=== PATIENT | female | born 1970 | race Caucasian/White ===

== ENCOUNTER 2018-05-15 14:46 | Emergency (ER) | payer OTHER ==
[2018-05-15 15:01] VITALS: RESP 18
--- NOTE | 2018-05-15 16:00 | ED ---
General Adult HPI - General Chief complaint: Fall Stated complaint: fall with facial injury Source: patient Mode of arrival: ambulatory Limitations: no limitations - History of Present Illness Initial comments: Dictation was produced using [employer] dictation software. please excuse any grammatical, word or spelling errors. Chief Complaint: 47-year-old female presents with facial pain after fall. History of Present Illness: Patient is a 47-year-old femalepast medical history presents with facial pain. Proximal to 1 hour ago she was walking up the stairs patient she tripped hitting her face on one of the steps. Patient denies any loss of consciousness. Denies any bleeding. Patient denies any double vision. No other complaints at this time. The ROS documented in this emergency department record has been reviewed and confirmed by me. Those systems with pertinent positive or negative responses have been documented in the HPI. All other systems are other negative and/or noncontributory. - Related Data Allergies Allergy/AdvReac Type Severity Reaction Status Date / Time No Known Allergies Allergy Verified 05/15/18 14:57 Review of Systems ROS Statement: Those systems with pertinent positive or pertinent negative responses have been documented in the HPI. ROS Other: All systems not noted in ROS Statement are negative. Past Medical History Past Medical History: Cancer, GERD/Reflux Additional Past Medical History / Comment(s): collapsed lung 07/02, thyroid CA, History of Any Multi-Drug Resistant Organisms: None Reported Additional Past Surgical History / Comment(s): thyroidectomy, L breast bx, carpal tunnel Past Psychological History: Anxiety Smoking Status: Never smoker Past Alcohol Use History: None Reported Past Drug Use History: None Reported General Exam - General Exam Comments Initial Comments: PHYSICAL EXAM: General Impression: Alert and oriented x3, not in acute distress HEENT: Normocephalic atraumatic, mild tenderness to palpation over the right maxilla, extra-ocular movements intact, pupils equal and reactive to light bilaterally, mucous membranes moist. Cardiovascular: Heart regular rate and rhythm, S1&S2 audible, no murmurs, rubs or gallops Chest: Lungs clear to auscultation bilaterally, no rhonchi, no wheeze, no rales Abdomen: Bowel sounds present, abdomen soft, non-tender, non-distended, no organomegaly Musculoskeletal: Pulses present and equal in all extremities, no peripheral edema Motor: Power 5/5 bilaterally, no focal deficits noted Neurological: CN II-XII grossly intact, no focal motor or sensory deficits noted Skin: Intact with no visualized rashes Psych: Normal affect and mood Limitations: no limitations Course Vital Signs 05/15/18 14:57 Temperature 97.7 F Pulse Rate 122 H Respiratory 18 Rate Blood Pressure 169/113 O2 Sat by Pulse 98 Oximetry Medical Decision Making - Medical Decision Making ED course: 47-year-old female with facial pain status post fall. Signs upon arrival shows heart rate of 122, rest of vital signs within acceptable limits. Computed tomography scan of the face is unremarkable. Patient be discharged. Disposition Clinical Impression: Facial contusion Disposition: HOME SELF-CARE Instructions: Facial Contusion (ED) Is patient prescribed a controlled substance at d/c from ED?: No Referrals: Edmond Devine DO [Primary Care Provider] - 1-2 days Time of Disposition: 16:55
[2018-05-15] MEDS ORDERED: ACETAMINOPHEN TAB 325 MG TAB PO STA (16:25)
--- NOTE | 2018-05-15 16:43 | CT ---
EXAMINATION TYPE: CT facial bones wo con DATE OF EXAM: 05/15/2018 COMPARISON: NONE HISTORY: Fall today, frontal injury. CT DLP: 438.8 mGycm. Automated Exposure Control for Dose Reduction was Utilized. TECHNIQUE: CT scan of the sinuses is performed without contrast, axial images are obtained, coronal r eformatted images are also reviewed. FINDINGS: No evidence of a facial bone fracture. No significant soft tissue swelling or radiopaque fo reign bodies. The globes are unremarkable. Retrobulbar spaces are clear. Paranasal sinuses reveals pa tulous ostiomeatal units which are likely postsurgical. The mandible is intact. The temporomandibular joints are unremarkable. Mastoid air cells are well pneumatized bilaterally. Visualized portions of the upper most cervical spine are unremarkable. IMPRESSION: No evidence of acute facial bone fracture. Essentially unremarkable study.
[2018-05-15 17:14] VITALS: BP 148/108; PULSE 96; TEMP 98.2
== END 2018-05-15 17:13 | disposition home or self-care (01) ==
LOC: EC 14:46
DX: S00.83XA Contusion of other part of head, initial encounter (principal); Z85.850 Personal history of malignant neoplasm of thyroid; W10.9XXA Fall (on) (from) unspecified stairs and steps, initial encounter; Y93.01 Activity, walking, marching and hiking; Y92.009 Unspecified place in unspecified non-institutional (private) residence as the place of occurrence of the external cause
CPT/HCPCS: 70486; 99283

== ENCOUNTER → 2018-07-19 | Outpatient (CLI) | payer SELFPAY | LOC: LABWHC1 12:57 | PROVIDERS: ATTEND Family Medicine | DX: E03.9 Hypothyroidism, unspecified (principal) | CPT/HCPCS: 36415; 84439; 84443 ==

== ENCOUNTER → 2018-10-07 | Outpatient (CLI) | payer OTHER | END | disposition home or self-care (01) | LOC: LABWHC1 11:26 | PROVIDERS: ATTEND Family Medicine | DX: E03.9 Hypothyroidism, unspecified (principal) | CPT/HCPCS: 36415; 84439; 84443 ==

== ENCOUNTER 2018-11-10 20:35 | Emergency (ER) | payer OTHER ==
[2018-11-10 20:50] VITALS: RESP 18
--- NOTE | 2018-11-10 21:36 | XR ---
PROCEDURE: XR hand complete RT - 3V DATE AND TIME: 11/10/2018 9:05 PM CLINICAL INDICATION: PHH; Pain TECHNIQUE: Department protocol COMPARISON: None FINDINGS: There is no fracture or malalignment. There is evidence of remote healed fifth metacarpal neck fracture, but no acute finding. Soft tissue swelling is noted. IMPRESSION: Soft tissue swelling.
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
[2018-11-10 23:45] VITALS: BP 143/99; PULSE 93; TEMP 97.6
== END 2018-11-10 23:44 | disposition home or self-care (01) ==
LOC: EC 20:35
DX: S60.221A Contusion of right hand, initial encounter (principal); Z85.850 Personal history of malignant neoplasm of thyroid; Z86.11 Personal history of tuberculosis; Z98.890 Other specified postprocedural states; Z90.89 Acquired absence of other organs; W22.01XA Walked into wall, initial encounter
CPT/HCPCS: 99284

== ENCOUNTER 2018-11-26 21:53 | Emergency (ER) | payer OTHER ==
[2018-11-26 22:01] VITALS: TEMP 98
--- NOTE | 2018-11-26 22:12 | ED ---
Overdose HPI - General Chief Complaint: Overdose Stated Complaint: Overdose Time Seen by Provider: 11/26/18 21:58 Source: patient, RN notes reviewed, old records reviewed Mode of arrival: ambulatory Limitations: no limitations - History of Present Illness Initial Comments: This is a 47-year-old female the ER for evaluation. Patient resents today for evaluation regards to overdose. Patient is positive heroin overdose. Patient denies other drugs or alcohol. Patient states she is not homicidal or suicidal. Patient denies prior history of MD Complaint: accidental overdose -: minutes(s) Intent: unknown How Overdose Was Discovered: family/friend present at time Context: Intentional Overdose: drug/ETOH problems Context: Accidental Overdose: wanted to get high Treatments Prior to Arrival: none - Related Data Allergies Allergy/AdvReac Type Severity Reaction Status Date / Time No Known Allergies Allergy Verified 11/26/18 22:04 Review of Systems ROS Statement: Those systems with pertinent positive or pertinent negative responses have been documented in the HPI. ROS Other: All systems not noted in ROS Statement are negative. Past Medical History Past Medical History: Cancer, GERD/Reflux Additional Past Medical History / Comment(s): collapsed lung 07/02, thyroid CA, ( TB at age 4, always test pos), History of Any Multi-Drug Resistant Organisms: None Reported Past Surgical History: Hysterectomy Additional Past Surgical History / Comment(s): thyroidectomy, L breast bx, carpal tunnel Past Psychological History: Anxiety Smoking Status: Current every day smoker Past Alcohol Use History: None Reported Past Drug Use History: Heroin General Exam Limitations: no limitations General appearance: alert, in no apparent distress Head exam: Present: atraumatic, normocephalic, normal inspection Eye exam: Present: normal appearance, PERRL, EOMI. Absent: scleral icterus, conjunctival injection, periorbital swelling ENT exam: Present: normal exam, mucous membranes moist Neck exam: Present: normal inspection. Absent: tenderness, meningismus, lympha denopathy Respiratory exam: Present: normal lung sounds bilaterally. Absent: respiratory distress, wheezes, rales, rhonchi, stridor Cardiovascular Exam: Present: regular rate, normal rhythm, normal heart sounds. Absent: systolic murmur, diastolic murmur, rubs, gallop, clicks GI/Abdominal exam: Present: soft, normal bowel sounds. Absent: distended, tenderness, guarding, rebound, rigid Extremities exam: Present: normal inspection, full ROM, normal capillary refill. Absent: tenderness, pedal edema, joint swelling, calf tenderness Back exam: Present: normal inspection Neurological exam: Present: alert, oriented X3, CN II-XII intact Psychiatric exam: Present: normal affect, normal mood Skin exam: Present: warm, dry, intact, normal color. Absent: rash Course Vital Signs 11/26/18 11/26/18 21:56 22:19 Temperature 98.0 F Pulse Rate 110 H 103 H Respiratory 16 17 Rate Blood Pressure 149/107 154/96 O2 Sat by Pulse 95 96 Oximetry - Reevaluation(s) Reevaluation #1: 11/26/18 22:35 Medical record reviewed Reevaluation #2: 11/26/18 22:35 Patient given counseling regarding risk of within the next few with heroin overdose requiring Narcan. Questions answered. Patient admits to feeling depressed but not homicidal or suicidal Medical Decision Making - Medical Decision Making [place] female the ER status post overdose breath, EMS, family at bedside able to take patient home. Disposition Clinical Impression: Drug overdose, Poisoning by opiate or related narcotic Disposition: HOME SELF-CARE Condition: Good Instructions (If sedation given, give patient instructions): Opioid Use Disorder (ED) Is patient prescribed a controlled substance at d/c from ED?: No Referrals: Edmond Devine DO [Primary Care Provider] - 1-2 days
[2018-11-26 22:19] VITALS: PULSE 103
[2018-11-26 22:48] VITALS: BP 131/89; RESP 18
== END 2018-11-26 22:48 | disposition home or self-care (01) ==
LOC: EC 21:53
DX: T40.1X1A Poisoning by heroin, accidental (unintentional), initial encounter (principal); F17.200 Nicotine dependence, unspecified, uncomplicated; Z85.850 Personal history of malignant neoplasm of thyroid; E89.0 Postprocedural hypothyroidism
CPT/HCPCS: 99284

== ENCOUNTER → 2019-02-11 | Outpatient (CLI) | payer OTHER ==
[2019-02-11 14:31] VITALS: BP 130/87; PULSE 99; RESP 18; TEMP 98.2; BMI 29.0
--- NOTE | 2019-02-11 14:50 | P.GSHP ---
History of Present Illness H&P Date: 02/11/19 Chief Complaint: abnormal mammogram on the left breast The patient is a 48-year-old white female who comes for breast evaluation. Approximately year ago she had a mammogram and ultrasound performed of the breast in [place] and received a notification that she should have additional studies done of the left breast. The patient herself does not feel any masses or nodules in her breast. She has not had any recent radiographic evaluations at this time. No history of any trauma or infection of the breast. She did have a left breast biopsy many years ago which was benign. Family history: maternal aunt: breast cancer paternal grandfather: lung cancer father: skin cancer patient: thyroid cancer Hormonal history: Menarche:15 G0 hysterectomy: left ovaries, done for adenomyosis BCP: 20 years hormones: none Surgical history: 1. Total thyroidectomy 2. Hysterectomy 3. lung surgery it had collapsed 4. right knee laproscopic Medical History: Emphysema Social History: smoke: 1/PPD alcohol: none drugs: none - Constitutional Comment: hot flashes Constitutional: Reports sweats - EENT Comment: glaucoma in left eye Eyes: denies blurred vision, denies pain Ears: deny: decreased hearing, tinnitus Ears, nose, mouth and throat: Denies headache, Denies sore throat - Breasts Breasts: bilateral: as per HPI - Cardiovascular Cardiovascular: Reports high blood pressure, Denies chest pain, Denies shortness of breath - Respiratory Comment: lung collapse, pneumonia, emphysema Respiratory: Denies cough, Denies 7 - Gastrointestinal Gastrointestinal: Denies abdominal pain, Denies diarrhea, Denies nausea, Denies vomiting - Genitourinary (Female) Genitourinary: Denies dysuria, Denies hematuria - Menstruation Menstruation: Reports post hysterectomy - Musculoskeletal Comment: knee and lower back pain Musculoskeletal: Denies myalgias - Integumentary Comment: tattoos - Neurological Neurological: Denies numbness, Denies weakness - Psychiatric Psychiatric: Reports anxiety, Reports depression - Endocrine Endocrine: Denies fatigue, Denies weight change - Hematologic/Lymphatic Comment: none - Allergic/Immunologic Allergic/Immunologic: Reports seasonal allergies Past Medical History Past Medical History: Cancer, GERD/Reflux Additional Past Medical History / Comment(s): collapsed lung 07/02, thyroid CA, ( TB at age 4, always test pos), History of Any Multi-Drug Resistant Organisms: None Reported Past Surgical History: Hysterectomy Additional Past Surgical History / Comment(s): thyroidectomy, L breast bx, carpal tunnel Past Psychological History: Anxiety Smoking Status: Current every day smoker Past Alcohol Use History: None Reported Past Drug Use History: Heroin Medications and Allergies Home Medications Medication Instructions Recorded Confirmed Type Levothyroxine Sodium [Synthroid] 200 mcg PO DAILY 11/26/18 11/26/18 History Omeprazole 40 mg PO DAILY 11/26/18 11/26/18 History Sertraline [Zoloft] 200 mg PO HS 11/26/18 11/26/18 History Acetaminophen [Tylenol] 500 mg PO Q4-6H PRN 02/11/19 02/11/19 History Allergies Allergy/AdvReac Type Severity Reaction Status Date / Time No Known Allergies Allergy Verified 02/11/19 14:28 Surgical - Exam Vital Signs Temp Pulse Resp BP Pulse Ox 98.2 F 99 18 130/87 93 L 02/11/19 14:28 02/11/19 14:28 02/11/19 14:28 02/11/19 14:28 02/11/19 14:28 BMI 29 - General well developed, well nourished, no distress - Eyes normal ocular movement - ENT no hearing loss, no congestion - Neck no masses, trachea midline - Respiratory normal respiratory effort, clear to auscultation - Cardiovascular Rhythm: regular Heart Sounds: normal: S1, S2 - Abdomen Abdomen: soft, non tender, no guarding, no rigid, no rebound - Integumentary tattoos - Neurologic no disoriented, no combative - Musculoskeletal normal gait, normal posture - Psychiatric oriented to time, oriented to person, oriented to place, speech is normal, memory intact breast: Right breast: Multi-positional exam fibrocystic changes no dominant masses or nodules of concern Right axilla: No adenopathy of concern Left breast: Multi-positional exam fibrocystic changes no dominant masses or nodules of concern well-healed scar from prior biopsy Left axilla: No adenopathy of concern Assessment and Plan Assessment: Impression: 1. Abnormal radiograph from [place] who reports are not available at this time 2. Fibrocystic breast changes 3. Prior left breast biopsy with postop changes 4. Family history of breast cancer 5. Family history cancer 6. Nicotine dependence 7. Emphysema Plan: 1. Bilateral mammogram and left breast ultrasound 2. Follow-up after radiographs 3. Increase patient to stop smoking 4. Medical management of medical conditions CC: Dr. Drake
== END | disposition home or self-care (01) ==
LOC: WWCWWP 13:51
PROVIDERS: ATTEND Surgery
DX: Z53.9 Procedure and treatment not carried out, unspecified reason (principal)

== ENCOUNTER → 2019-04-01 | Outpatient (CLI) | payer OTHER ==
--- NOTE | 2019-04-01 14:19 | XR ---
EXAMINATION TYPE: XR spine complete AP and Lat DATE OF EXAM: 04/01/2019 COMPARISON: NONE HISTORY: Neck and back pain. TECHNIQUE: Frontal and lateral views of the entire spine including open mouth frontal view C1-C2 leve l and swimmer's view of the cervicothoracic junction are obtained. FINDINGS: There is mild disc space narrowing C4-C5 level. There is mild disc space narrowing and ante rior spurring C5-C6 level. Suboptimal evaluation of lower cervical levels due to osseous overlap. C1- C2 articulation satisfactory open mouth frontal view. Cervical alignment maintained. No suspicious pr evertebral soft tissue swelling. Thoracic spine shows satisfactory alignment with mild to moderate multilevel anterior spurring. Verte bral body heights and disc space heights are preserved. Visualized ribs are intact bilaterally. There are 5 lumbar type vertebra. Mild to moderate disc space narrowing L4-L5 at L5-S1 levels. [place] ing vascular calcification. Alignment satisfactory. IMPRESSION: As above.
== END | disposition home or self-care (01) ==
LOC: RADXRMAIN 13:54
PROVIDERS: ATTEND Family Medicine
DX: M99.71 Connective tissue and disc stenosis of intervertebral foramina of cervical region (principal); M99.73 Connective tissue and disc stenosis of intervertebral foramina of lumbar region; M46.04 Spinal enthesopathy, thoracic region
CPT/HCPCS: 72082

== ENCOUNTER 2019-06-18 09:04 | Emergency (ER) | payer OTHER ==
[2019-06-18 09:24] VITALS: TEMP 97.6
[2019-06-18] MEDS ORDERED: AMOXIC-POT CLAV 875MG STARTER 2 EACH TABLET PO STA (10:09)
--- NOTE | 2019-06-18 10:10 | ED ---
Skin/Abscess/FB HPI - General Source: patient, RN notes reviewed, old records reviewed Mode of arrival: ambulatory Limitations: no limitations <Mirian Sharma - Last Filed: 06/18/19 10:04> <Hoda Browne - Last Filed: 06/19/19 21:46> - General Chief complaint: Skin/Abscess/Foreign Body Stated complaint: Lump on face Time Seen by Provider: 06/18/19 09:29 - History of Present Illness Initial comments: This Patient is a 48-year-old female who presents branch from today with a lump on her left cheek. She reports that she started noticed this around Christmastime increase in size. She states over the past week she took old azithromycin tablets that she had prior. She states that she did have a crown placed over her tooth #12. Patient states that this occurred a few months ago. Patient states that she's had no specific dental pain. Patient reports that she has had no fevers or chills. She denies any difficulty breathing. (Mirian Sharma) - Related Data Home Medications Medication Instructions Recorded Confirmed Levothyroxine Sodium [Synthroid] 200 mcg PO DAILY 11/26/18 11/26/18 Omeprazole 40 mg PO DAILY 11/26/18 11/26/18 Sertraline [Zoloft] 200 mg PO HS 11/26/18 11/26/18 Acetaminophen [Tylenol] 500 mg PO Q4-6H PRN 02/11/19 02/11/19 Previous Rx's Medication Instructions Recorded Amoxic-Pot Clav 875-125Mg 1 tab PO Q12HR #20 tablet 06/18/19 [Augmentin 875-125] Allergies Allergy/AdvReac Type Severity Reaction Status Date / Time No Known Allergies Allergy Verified 06/18/19 09:24 Review of Systems ROS Other: All systems not noted in ROS Statement are negative. <Mirian Sharma - Last Filed: 06/18/19 10:04> ROS Other: All systems not noted in ROS Statement are negative. <Hoda Browne - Last Filed: 06/19/19 21:46> ROS Statement: Those systems with pertinent positive or pertinent negative responses have been documented in the HPI. Past Medical History Past Medical History: Cancer, GERD/Reflux Additional Past Medical History / Comment(s): collapsed lung 07/02, thyroid CA, ( TB at age 4, always test pos), History of Any Multi-Drug Resistant Organisms: None Reported Past Surgical History: Hysterectomy Additional Past Surgical History / Comment(s): thyroidectomy, L breast bx, carpal tunnel Past Psychological History: Anxiety Smoking Status: Current every day smoker Past Alcohol Use History: None Reported Past Drug Use History: Heroin <Mirian Sharma - Last Filed: 06/18/19 10:04> General Exam Limitations: no limitations General appearance: alert, in no apparent distress Head exam: Present: atraumatic, normocephalic, normal inspection Eye exam: Present: normal appearance ENT exam: Present: normal exam, mucous membranes moist, other (left maxillary tenderness, ) Neck exam: Present: normal inspection. Absent: tenderness, meningismus, lymphadenopathy Respiratory exam: Present: normal lung sounds bilaterally Cardiovascular Exam: Present: regular rate, normal rhythm, normal heart sounds. Absent: systolic murmur, diastolic murmur, rubs, gallop, clicks GI/Abdominal exam: Present: soft, normal bowel sounds. Absent: distended, tenderness, guarding, rebound, rigid Extremities exam: Present: normal inspection Back exam: Present: normal inspection Neurological exam: Present: alert, oriented X3, CN II-XII intact Psychiatric exam: Present: normal affect, normal mood Skin exam: Present: warm, dry, intact, normal color. Absent: rash <Mirian Sharma - Last Filed: 06/18/19 10:04> - General Exam Comments Initial Comments: 48 year old female no distress. (Mirian Sharma) Course Vital Signs 06/18/19 06/18/19 06/18/19 09:21 09:23 10:23 Temperature 97.6 F Pulse Rate 81 78 Respiratory 18 20 20 Rate Blood Pressure 175/110 175/100 O2 Sat by Pulse 98 Oximetry Medical Decision Making <Mirian Sharma - Last Filed: 06/18/19 10:04> <Hoda Browne - Last Filed: 06/19/19 21:46> - Medical Decision Making is a 48-year-old female presents today with dental abscess related from tooth #12. She has some swelling extending into the left maxillary area. No fever. No stranding erythema. Patient was taking azithromycin from an old prescription. Discussed not appropriate antibiotic. We'll put the Patient on Augmentin at this time. I discussed the Patient needs to follow-up with her dental clinic. No drainable portion of the abscess at this time. I discussed return parameters. (Mirian Sharma) I was available for consultation in the emergency department. The history and physical exam were done by the midlevel provider. I was consulted for this patients care. I reviewed the case with the midlevel provider and based on their presentation of the patient, I agree with the assessment, medical decision making and plan of care as documented. Chart was dictated using VeriTainer dictation software. Attempts were made to correct any dictation errors however some typographical errors may persist. (Hoda Browne) Disposition Is patient prescribed a controlled substance at d/c from ED?: No If opioid is for acute pain is fill amount 7 days or less?: No If Rx opioid, was Start Talking consent form obtained?: No Time of Disposition: 10:09 <Mirian hSarma - Last Filed: 06/18/19 10:04> <Hoda Browne - Last Filed: 06/19/19 21:46> Clinical Impression: Abscess, dental Disposition: HOME SELF-CARE Condition: Good Instructions (If sedation given, give patient instructions): Abscess (ED) Additional Instructions: Patient advised to take antibiotic as prescribed. Taking Motrin Tylenol for pain. Return to emergency department if any alarming signs or symptoms occur. [facility] [address] [place] [address] [phone] (existing clients only) For new clients: [phone] 1st consult: $50 (includes Xrays) Usually 30% less then private dentist for visits after. [employer] Have to pay $50 for Xrays anmd rest is covered. [phone] Prescriptions: Amoxic-Pot Clav 875-125Mg [Augmentin 875-125] 1 tab PO Q12HR #20 tablet Referrals: Edmond Devine DO [Primary Care Provider] - 1-2 days
[2019-06-18 10:26] VITALS: RESP 20
[2019-06-18 10:28] VITALS: BP 175/100; PULSE 78
== END 2019-06-18 10:30 | disposition home or self-care (01) ==
LOC: EC 09:04
DX: K04.7 Periapical abscess without sinus (principal); K21.9 Gastro-esophageal reflux disease without esophagitis; F41.9 Anxiety disorder, unspecified; F17.200 Nicotine dependence, unspecified, uncomplicated; Z85.850 Personal history of malignant neoplasm of thyroid; Z79.890 Hormone replacement therapy; Z79.899 Other long term (current) drug therapy
CPT/HCPCS: 99283

== ENCOUNTER → 2019-12-19 | Outpatient (CLI) | payer OTHER ==
--- NOTE | 2019-12-19 13:40 | MR ---
EXAMINATION TYPE: MR lumbar spine wo con DATE OF EXAM: 12/19/2019 1:09 PM COMPARISON: NONE HISTORY: Chronic LBP, muscle spasms, lt leg numbness Multiplanar, MultiSpin echo imaging of the lumbar spine was performed. L1-L2: Normal disc appearance without desiccation. No herniation, protrusion or disc bulging. No ca nal stenosis is present. Foramina are patent bilaterally. L2-L3: Normal disc appearance without desiccation. No herniation, protrusion or disc bulging. No ca nal stenosis is present. Foramina are patent bilaterally. L3-L4: Mild decreased signal ossified compatible degenerative disc disease. Posterior disc bulge with mild effacement ventral thecal sac. No evidence of herniation. No central stenosis or foraminal encr oachment. L4-L5: Mild decreased signal ossified compatible degenerative disc disease. Posterior disc bulge with mild effacement ventral thecal sac. No evidence of herniation. No central stenosis or foraminal encr oachment. L5-S1: Moderate disc desiccation with posterior disc bulge. Small protrusion difficult to exclude. No evidence for lateral recess stenosis or central stenosis. The mild left foraminal Lumbar segments are intact. No paraspinal masses are identified. Conus medullaris has a normal appe arance. IMPRESSION: 1. Degenerative disc disease as discussed. Small protrusion at L5-S1 difficult to excluded.
== END | disposition home or self-care (01) ==
LOC: RADMRIMAIN 12:21
PROVIDERS: ATTEND Physical Medicine & Rehabilitation
DX: M51.16 Intervertebral disc disorders with radiculopathy, lumbar region (principal); Z85.850 Personal history of malignant neoplasm of thyroid
CPT/HCPCS: 72148

== ENCOUNTER 2021-11-13 09:12 | Day surgery (SDC) | payer OTHER ==
[2021-11-08 17:10] VITALS: BMI 30.5
--- NOTE | 2021-11-12 08:59 | P.HPOR ---
History of Present Illness H&P Date: 11/12/21 Chief Complaint: Right thumb CMC arthritis Subjective: This is a 50 year old female that presents today for initial evaluation regarding a several year history of progressively worsening bilateral base of the thumb pain. She states the right side is worse than the left side and that by the end of each day and each morning her thumbs throb and she is unable to pinch, grasp, or open any type of jar due to pain and weakness and swelling. She denies any injury. She has tried splints and orthotics over the years but has noticed no relief from her symptoms in the last year or so. She denies any paresthesias. 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 Physical Examination: LUE: AIN/PIN/Radial/Ulnar/Median motor intact. Radial/Ulnar/Median SILT. 2+/4 Radial/Ulnar pulses palpated. 5/5 APB, 5/5 FDI. Negative Finkelsteins, positive CMC grind, negative Durkan's compression. RUE: AIN/PIN/Radial/Ulnar/Median motor intact. Radial/Ulnar/Median SILT. 2+/4 Radial/Ulnar pulses palpated. 5/5 APB, 5/5 FDI. Negative Finkelsteins, positive CMC grind, negative Durkan's compression. Imaging: X-Rays of the right hand demonstrate advanced degenerative changes at the thumb CMC joint with joint space narrowing and osteophyte formation. X-Rays of the left hand demonstrate advanced degenerative changes at the thumb CMC joint with joint space narrowing and osteophyte formation. Impression: 1.) B/L Thumb CMC arthritis, right worse than left. Plan: Diagnosis and treatment options were discussed with the patient. She has failed conservative treatment for her bilateral thumb CMC arthritis and is having continued pain that is becoming a daily occurrence with pain and weakness that is effecting her daily activities. We discussed details of thumb CMC tendon transfer arthroplasty and she wishes to proceed with surgical intervention since conservative treatment is no long providing relief. Risks and benefit of surgery including bleeding, infection, damage to surrounding tissue, need for further surgery, residual numbness were discussed and the patient wished to go forward with surgery on the right side. PCP clearance in requested and she will be scheduled for outpatient surgery in the near future. -Robles Edwards DO Orthopedic Hand/Upper Extremity Surgeon Past Medical History Past Medical History: Cancer, Diabetes Mellitus, GERD/Reflux, Hypertension, Musculoskeletal Disorder, Osteoarthritis (OA), Respiratory Disorder, Thyroid Disorder Additional Past Medical History / Comment(s): Hx tachycardia in her 20's; emphysema; collapsed lung 07/02, thyroid CA, ( TB at age 4, always test pos), Hx po Rx for HTN & DM, none since wgt loss 2010 est. Rt thumb arthritis, herniated discs in lower back. History of Any Multi-Drug Resistant Organisms: None Reported Past Surgical History: Breast Surgery, Hysterectomy, Orthopedic Surgery Additional Past Surgical History / Comment(s): thyroidectomy, L breast bx, carpal tunnel bilat Past Anesthesia/Blood Transfusion Reactions: No Reported Reaction Smoking Status: Current every day smoker, Vaper - Past Family History Father Family Medical History: Cancer Additional Family Medical History / Comment(s): skin cancer Medications and Allergies Home Medications Medication Instructions Recorded Confirmed Type Levothyroxine Sodium [Synthroid] 300 mcg PO DAILY 11/26/18 11/08/21 History Omeprazole 40 mg PO DAILY 11/26/18 11/08/21 History Sertraline [Zoloft] 200 mg PO HS 11/26/18 11/08/21 History Acetaminophen [Tylenol] 325 - 650 mg PO Q4H PRN 11/08/21 11/08/21 History Cyclobenzaprine [Flexeril] 10 mg PO HS PRN 11/08/21 11/08/21 History Ibuprofen [Motrin Ib] 400 mg PO Q8H PRN 11/08/21 11/08/21 History traZODone HCL [Desyrel] 100 mg PO HS 11/08/21 11/08/21 History Allergies Allergy/AdvReac Type Severity Reaction Status Date / Time No Known Allergies Allergy Verified 11/08/21 16:46 Physical Examination Osteopathic Statement: *. No significant issues noted on an osteopathic structural exam other than those noted in the History and Physical/Consult.
[~2021-11-13 09:12] MED LIST: LACTATED RINGERS 1,000 ML IV SCH; LIDOCAINE 1% (10MG/ML) FOR IV START INTRADERMA PRN; ONDANSETRON 4 MG/2 ML VIAL IVP ONE
[2021-11-13] MEDS ORDERED: LACTATED RINGERS 1,000 ML IV ONE (09:40)
[2021-11-13 09:52] LABS: Glucose,Whole Blood 98 mg/dL (75-99)
[2021-11-13] MEDS ORDERED: MIDAZOLAM 2 MG/2 ML VIAL ONE (11:58)
[2021-11-13] MEDS ORDERED: HYDROmorphone (PF) 1 MG/ML ONE (11:58)
[2021-11-13] MEDS ORDERED: PROPOFOL 10 MG/ML 20 ML VIAL IV ONE (11:58)
[2021-11-13] MEDS ORDERED: fentaNYL (PF) 50 MCG/ML 2 ML AMP ONE (11:58)
[2021-11-13] MEDS ORDERED: LIDOCAINE 2% INJ 20 MG/ML (2 ML VIAL) ONE (11:58)
[2021-11-13] MEDS ORDERED: BUPIVACAINE (PF) 0.5% 30 ML VIAL SQ ONE ×2 (12:03→13:13)
[2021-11-13 13:24] VITALS: TEMP 97.4
[2021-11-13] MEDS: HYDROmorphone 0.5 MG/0.5 ML SYRINGE IVP PRN ×3 (13:27→14:02)
[2021-11-13 13:52] VITALS: RESP 16
[2021-11-13 14:35] VITALS: BP 121/76; PULSE 80
--- NOTE | 2021-11-14 07:05 | P.OP ---
Date of Procedure: 11/14/21 Preoperative Diagnosis: 1.) Right thumb CMC arthritis Postoperative Diagnosis: 1.) Right thumb CMC arthritis Procedure(s) Performed: 1.) Right thumb CMC tendon transfer arthroplasty with trapezium resection Implants: Arthrex 3.5mm SwiveLock anchor x2 Anesthesia: JAMES regional Surgeon: Robles Edwards Loader #1: Rk Villafuerte Estimated Blood Loss (ml): 10 Pathology: none sent Condition: stable Disposition: PACU Description of Procedure: This is a 50 year old female who presents today for a right thumb CMC tendon transfer arthroplasty after having failed conservative treatment for severe thumb CMC arthritis. Risks and benefits of surgery were discussed with the patient including bleeding, damage to surrounding tissue, infection, need for further surgery as well as risks of anesthesia including pulmonary embolism and even and the patient wished to proceed with surgical intervention. The patients was seen in the pre-operative area by myself. Consent and H&P were completed and updated. The correct extremity was marked in the pre-operative area by myself and all other questions were answered. Patient received a upper extremity nerve block by the department of anesthesia. He then was brought to the operating room by the department of anesthesia. They remained on the portable stretcher and a rolling hand table was brought to the side of the operative extremity. The patient was then drifted off to sleep by [facility] department of anesthesia. A nonsterile tourniquet was then applied to the operative extremity and the right upper extremity was then prepped and draped in normal sterile fashion. Pre-operative time out was performed indicating the correct patient, procedure and laterality. All in the room agreed. Pre-operative antibiotics were given prior to skin incision. The operative extremity was the exsanguinated with an esmarch bandage and the tourniquet was inflated to 250mmHg. Longitudinal incision was made over the left thumb CMC joint with a 15 blade scalpel. Blunt dissection was taken down to subcutaneous tissues with littler scissors taking care to preserve the branches of the superficial radial nerve. Dorsal radial artery was identified proximally in the incision and protected throughout the procedure. Scalpel was then made to incise the thumb CMC joint creating full thickness flaps off of the proximal metacarpal base and trapezium, this plane was further developed with a periosteal elevator. Elevator was then utilized to identify the thumb CMC joint and scaphotrapezial joint. McGlamory elevator was then used to excise the trapezium whole. Guidewire was then introduced down to the laser line at the base of the first metacarpal through the same incision and was over drilled with gold drill guide to prepare for APL graft. Another guidewire was then inserted at the radial base of the first metacarpal near the Insertion of APL and was then over drilled with normal drill guide. A 2-3mm wide slip of APL was then harvested and incised proximally and reflected distally keeping its attachment at the base of the first metacarpal. The slip of APL was captured with a 3-0 looped fiberwire suture. A 3.5mm Arthrex SwiveLock anchor was then inserted into the base of the first metacarpal. Another 3.5mm Arthrex SwiveLock anchor was inserted into the base of the second metacarpal with the thumb in slight traction and adduction while capturing the APL graft and two strands of fibertape center across the first metacarpal base to create a sling around the base suspending the thumb metacarpal, good otto purchase was appreciated. The thumb was successfully suspended and full ROM was achieved passively. Suture and graft ends were cut and skin was closed with several interrupted 4-0 Monocryl sutures followed by a running 4-0 Monocryl stitch. Sterile dressing consisting of mastisol and steri strips followed by 4x4s cast padding, and a thumb spica plaster splint was applied. Tourniquet was let down and the hand had brisk cap refill and normal perfusion immediately. The patient was then woken by the department of anesthesia and transferred to PACU in stable condition. Rk HERNANDEZ was present for the case and assisted in major portions of procedure and protection of vital neurovascular structures. Robles Edwards D.O. Orthopedic Hand/Upper Extremity Surgeon
== END 2021-11-13 15:05 | disposition home or self-care (01) ==
LOC: OR 09:12
PROVIDERS: ATTEND Orthopaedic Surgery Hand Surgery
DX: M18.11 Unilateral primary osteoarthritis of first carpometacarpal joint, right hand (principal); E11.9 Type 2 diabetes mellitus without complications; F17.200 Nicotine dependence, unspecified, uncomplicated; I10 Essential (primary) hypertension; J43.9 Emphysema, unspecified; K21.9 Gastro-esophageal reflux disease without esophagitis; Z79.1 Long term (current) use of non-steroidal anti-inflammatories (NSAID); Z85.850 Personal history of malignant neoplasm of thyroid
CPT/HCPCS: 25447; 25310; 26480; C1713; J2250; J0690; J2405; J3010; J1170 ×2; J2704; J2001

== ENCOUNTER → 2022-07-16 | Outpatient (CLI) | payer OTHER ==
[2022-07-16 22:52] LABS: INR 0.96 (0.90-1.11); Prothrombin Time 10.9 sec (9.9-11.9)
[2022-07-16 23:18] LABS: African American GFR (CKD) 102.4 (60.0-200.0); Albumin 4.3 g/dL (3.8-4.9); Albumin/Globulin Ratio 1.82 (1.60-3.17); Anion Gap 10.7 mmol/L (10.00-18.00); BUN/Creat Ratio 7.28 Ratio (12.00-20.00); Blood Urea Nitrogen 5.7 mg/dL (9.0-27.0); Carbon Dioxide 28.1 mmol/L (20.0-27.5); Globulin 2.3 g/dL (1.6-3.3); Non-African American GFR(CKD) 88.4 (60.0-200.0); Potassium 4.7 mmol/L (3.5-5.5); T4, Free (Free Thyroxine) 2.45 ng/dL (0.800-1.800); Total Bilirubin 0.6 mg/dL (0.30-1.20); Total Protein 6.6 g/dL (6.2-8.2)
[2022-07-18 23:06] LABS: Hepatitis A Antibody IgM Nonreactive (Nonreactive); Hepatitis B Core IgM Nonreactive (Nonreactive); Hepatitis B Surface Antigen Nonreactive (Nonreactive); Hepatitis C IgG Antibody Reactive (Nonreactive)
== END | disposition home or self-care (01) ==
LOC: LABWHC1 14:32
PROVIDERS: ATTEND Family Medicine
DX: E03.9 Hypothyroidism, unspecified (principal); G47.00 Insomnia, unspecified; G89.29 Other chronic pain; M54.9 Dorsalgia, unspecified; R79.89 Other specified abnormal findings of blood chemistry; R58 Hemorrhage, not elsewhere classified
CPT/HCPCS: 36415; 80053; 80074; 82977; 84439; 84443; 85610

== ENCOUNTER → 2022-09-10 | Outpatient (CLI) | payer OTHER ==
--- NOTE | 2022-09-10 15:17 | US ---
EXAMINATION TYPE: US liver DATE OF EXAM: 09/10/2022 COMPARISON: NONE CLINICAL HISTORY: B18.2 CHR VIRAL HEP C. TECHNIQUE: Multiple sonographic images of the right upper quadrant are obtained. FINDINGS: EXAM MEASUREMENTS: Liver Length: 18.8 cm. Normal less than 15.5 cm. Gallbladder Wall: 0.3 cm CBD: 1.5 cm. Normal less than 0.5 cm. 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 Dilated common bile duct at 1.5 cm. Normal should be less than 0.5 cm at this age. Consider ERCP 2. Hepatomegaly.
== END | disposition home or self-care (01) ==
LOC: RADUSWWP 13:22
PROVIDERS: ATTEND Internal Medicine Gastroenterology
DX: K83.8 Other specified diseases of biliary tract (principal); R16.0 Hepatomegaly, not elsewhere classified; B18.2 Chronic viral hepatitis C
CPT/HCPCS: 76705

== ENCOUNTER → 2022-10-06 | Outpatient (CLI) | payer OTHER ==
--- NOTE | 2022-10-06 18:42 | MR ---
EXAMINATION TYPE: MR MRCP DATE OF EXAM: 10/06/2022 COMPARISON: Ultrasound liver September 10, 2022 HISTORY: Abnormal findings on US 09-10-22. Standard multiplanar, multisequence MRI departmental protocol Multiplanar, multisequence images of the abdomen were acquired without contrast. Diffusion weighted i maging was performed. Thin and thick slice MRCP imaging performed on MRI scanner. FINDINGS: Exam is suboptimal as patient unable to hold breath. Liver/gallbladder/pancreas/biliary system: Hepatomegaly is redemonstrated. There is diffuse signal dr opout consistent with diffuse fatty infiltration which correlates with recent ultrasound. No intralum inal gallstones. No concerning solid or cystic intrahepatic mass. No adjacent ascites. Pancreas shows no solid or cystic mass. Correlating with CT there is moderate extra hepatic biliary dilatation up t o 16 mm and mild central intrahepatic biliary dilatation. Pancreatic duct is visualized but not suspi ciously dilated. There is gradual tapering of the CBD towards the ampulla without obstructing calculu s or obvious mass. Other: Lung bases are grossly clear. The spleen and both adrenal glands appear within normal limits. No concerning renal mass or hydronephrosis. No suspicious bowel dilatation. No intra-abdominal ascite s. Osseous structures are intact. IMPRESSION: Hepatomegaly with diffuse fatty infiltration of liver redemonstrated. Mild to moderate bi liary dilatation redemonstrated. No CBD stone. No obvious mass on noncontrast MRI. Consider ERCP foll ow-up to further evaluate.
== END | disposition home or self-care (01) ==
LOC: RADMRIMAIN 06:38
PROVIDERS: ATTEND Internal Medicine Gastroenterology
DX: K76.0 Fatty (change of) liver, not elsewhere classified (principal); K83.8 Other specified diseases of biliary tract; R16.0 Hepatomegaly, not elsewhere classified; R93.2 Abnormal findings on diagnostic imaging of liver and biliary tract
CPT/HCPCS: 74181

== ENCOUNTER → 2023-01-07 | Outpatient (CLI) | payer OTHER ==
[2023-01-07 22:19] LABS: Basophils # (A) 0.02 X 10*3/uL (0.00-0.10); Basophils % (A) 0.4 %; Eosinophils # (A) 0 X 10*3/uL (0.04-0.35); Eosinophils % (A) 0 %; HGB 14.8 d/dL (12.0-15.0); Lymphocytes # (A) 1.63 X 10*3/uL (0.90-5.00); Lymphocytes % (A) 28.5 %; MCH 32.1 pg (27.0-32.0); MCHC 33.6 d/dL (32.0-37.0); MCV 95.4 FL (80.0-97.0); Mean Platelet Volume 12.5 FL (9.5-12.2); Monocytes # (A) 0.55 X 10*3/uL (0.20-1.00); Monocytes % (A) 9.6 %; NRBC Per 100 WBC 0 X 10*3/uL (0.00-0.01); Neutrophils # (A) 3.49 X 10*3/uL (1.80-7.70); Neutrophils % (A) 61.1 %; Platelet Count 137 X 10*3/uL (140-440); RBC 4.61 X 10*6/uL (4.10-5.20); RDW 14.7 % (11.5-14.5); WBC 5.71 X 10*3/uL (4.50-10.00)
[2023-01-08 04:32] LABS: ALT 18 U/L (8-44); AST 27 U/L (13-35); Albumin 4.3 d/dL (3.8-4.9); Albumin/Globulin Ratio 1.87 Ratio (1.60-3.17); Alkaline Phosphatase 122 U/L (41-126); BUN/Creat Ratio 9.71 Ratio (12.00-20.00); Blood Urea Nitrogen 6.8 mg/dL (9.0-27.0); Calcium 8.9 mg/dL (8.7-10.3); Carbon Dioxide 24.4 mmol/L (21.6-31.8); Chloride 102 mmol/L (96-109); Globulin 2.3 d/dL (1.6-3.3); Glucose 138 mg/dL (70-110); Potassium 4.2 mmol/L (3.5-5.5); Sodium 139 mmol/L (135-145); Total Bilirubin 0.4 mg/dL (0.3-1.2); Total Protein 6.6 d/dL (6.2-8.2)
== END | disposition home or self-care (01) ==
LOC: LABWHC1 14:23
PROVIDERS: ATTEND Nurse Practitioner Family
DX: B18.2 Chronic viral hepatitis C (principal)
CPT/HCPCS: 36415; 80053; 85025; 87522

== ENCOUNTER 2023-04-07 07:19 | Day surgery (SDC) | payer OTHER ==
[~2023-04-07 07:19] MED LIST changes: -ONDANSETRON 4 MG/2 ML VIAL IVP ONE
[2023-04-07] MEDS ORDERED: LACTATED RINGERS 1,000 ML IV ONE (08:01)
[2023-04-07 08:17] VITALS: TEMP 98.2
[2023-04-07] MEDS ORDERED: fentaNYL (PF) 50 MCG/ML 2 ML AMP ONE (08:43)
[2023-04-07] MEDS ORDERED: PROPOFOL 10 MG/ML 20 ML VIAL IV ONE (08:43)
[2023-04-07] MEDS ORDERED: LIDOCAINE 1% INJ 10MG/ML (20 ML MDV) ONE (08:43)
--- NOTE | 2023-04-07 08:54 | P.PCN ---
Date of Procedure: 04/07/23 Procedure(s) Performed: BRIEF HISTORY: Patient is a 52-year-old, pleasant, white female with history of liver cirrhosis/chronic hepatitis C infection is scheduled for an upper endoscopy to screen for esophageal varices. PROCEDURE PERFORMED: Esophagogastroduodenoscopy. PREOPERATIVE DIAGNOSIS: History of liver cirrhosis/screening for esophageal varices. IV sedation per anesthesia. PROCEDURE: After informed consent was obtained, the patient was brought into the endoscopy unit. IV sedation was administered by Anesthesia under continuous monitoring. Initially the Olympus GIF-140 video endoscope was inserted into the mouth. Esophagus intubated without any difficulty. It was gradually advanced into the stomach and duodenum and carefully examined. The bulb and the second part of the duodenum appeared normal. The scope at this time was withdrawn to the stomach, adequately insufflated with air, and upon careful examination, mucosa of the antrum, had linear superficial erythema consistent with gastritis. Mucosa of the body, cardia and the fundus appeared normal. Moderate amount of retained solid food noted in the fundus of the stomach suggestive of gastroparesis. No gastric varices seen. The scope was then withdrawn into the esophagus. The GE junction was located at 39 cm from the incisors. The esophagus appeared normal. There were no erosions or ulcerations seen. No evidence of esophageal varices and the patient tolerated the procedure well. IMPRESSION: 1. No evidence of gastric or esophageal varices. 2. Mild antral gastritis 3. Small amount of retained solid food in the stomach suggestive of gastroparesis. RECOMMENDATIONS: The findings of this examination were discussed with the patient as well as a family. She was advised to have a repeat upper endoscopy in 2-3 years to screen for esophageal varices.
[2023-04-07 09:57] VITALS: BP 132/78; PULSE 70; RESP 20
== END 2023-04-07 09:40 | disposition home or self-care (01) ==
LOC: ORWHC2ENDO 07:19
PROVIDERS: ATTEND Internal Medicine Gastroenterology
DX: K29.70 Gastritis, unspecified, without bleeding (principal); K74.60 Unspecified cirrhosis of liver; B18.2 Chronic viral hepatitis C; I10 Essential (primary) hypertension; E11.9 Type 2 diabetes mellitus without complications; E03.9 Hypothyroidism, unspecified; K21.9 Gastro-esophageal reflux disease without esophagitis; M19.90 Unspecified osteoarthritis, unspecified site; F17.200 Nicotine dependence, unspecified, uncomplicated; Z79.890 Hormone replacement therapy; Z79.899 Other long term (current) drug therapy
CPT/HCPCS: 43235; J2001; J3010; J2704

== ENCOUNTER → 2023-08-03 | Outpatient (CLI) | payer OTHER ==
[2023-08-03 15:39] LABS: ALT 22 U/L (8-44); AST 38 U/L (13-35); Albumin 4.1 g/dL (3.8-4.9); Albumin/Globulin Ratio 1.86 Ratio (1.60-3.17); Alkaline Phosphatase 140 U/L (41-126); BUN/Creat Ratio 9.71 Ratio (12.00-20.00); Blood Urea Nitrogen 6.8 mg/dL (9.0-27.0); Calcium 9.1 mg/dL (8.7-10.3); Carbon Dioxide 24.9 mmol/L (21.6-31.8); Chloride 100 mmol/L (96-109); Globulin 2.2 g/dL (1.6-3.3); Glucose 122 mg/dL (70-110); Potassium 4.5 mmol/L (3.5-5.5); Sodium 138 mmol/L (135-145); Total Bilirubin 0.6 mg/dL (0.3-1.2); Total Protein 6.3 g/dL (6.2-8.2)
[2023-08-03 16:19] LABS: Basophils # (A) 0.02 X 10*3/uL (0.00-0.10); Basophils % (A) 0.3 %; Eosinophils # (A) 0.01 X 10*3/uL (0.04-0.35); Eosinophils % (A) 0.2 %; HCT 45.5 % (37.2-46.3); HGB 15.5 g/dL (12.0-15.0); Lymphocytes # (A) 1.83 X 10*3/uL (0.90-5.00); Lymphocytes % (A) 29.4 %; MCH 31.8 pg (27.0-32.0); MCHC 34.1 g/dL (32.0-37.0); MCV 93.4 FL (80.0-97.0); Mean Platelet Volume 11.9 FL (9.5-12.2); Monocytes # (A) 0.53 X 10*3/uL (0.20-1.00); Monocytes % (A) 8.5 %; NRBC Per 100 WBC 0 X 10*3/uL (0.00-0.01); Neutrophils % (A) 61.1 %; Platelet Count 130 X 10*3/uL (140-440); RBC 4.87 X 10*6/uL (4.10-5.20); RDW 13.6 % (11.5-14.5); WBC 6.22 X 10*3/uL (4.50-10.00)
== END | disposition home or self-care (01) ==
LOC: LABWHC1 10:31
PROVIDERS: ATTEND Internal Medicine Gastroenterology
DX: B18.2 Chronic viral hepatitis C (principal)
CPT/HCPCS: 36415; 80053; 82105; 85025; 87522

== ENCOUNTER → 2023-08-03 | Outpatient (CLI) | payer OTHER ==
--- NOTE | 2023-08-03 15:47 | US ---
EXAMINATION TYPE: US liver DATE OF EXAM: 08/03/2023 COMPARISON: 09/10/2022 and 10/06/2022 CLINICAL INDICATION: Female, 52 years old with history of K74.60 UNSPECIFIED CIRRHOSIS OF LIVER; Cirr hosis TECHNIQUE: Multiple sonographic images of the right upper quadrant are obtained. FINDINGS: EXAM MEASUREMENTS: Liver Length: 16 cm Gallbladder Wall: .4 cm CBD: 1.9 cm Right Kidney: 10.7 x 3.9 x 4.6 cm Pancreas: Tail obscured by overlying bowel gas. Visualized portions show no gross abnormal body. Liver: Increased echogenicity. No focal lesion seen. Gallbladder: No stones seen. No hydropic change. No surrounding fluid. Evidence for sonographic Larios's sign: No CBD: Dilated versus 1.6 cm, previously. Right Kidney: No hydronephrosis or masses seen IMPRESSION: 1. At least moderate hepatic steatosis. Correlate with LFTs, lipid profile, and patient risk factors. 2. Redemonstrated dilated bile duct with a caliber up to 1.9 cm versus 1.6 cm on 09/10/2022. Correlate with alkaline phosphatase and bilirubin levels. Follow-up as clinically indicated. 3. No gallstones.
== END | disposition home or self-care (01) ==
LOC: RADUSWWP 10:07
PROVIDERS: ATTEND Internal Medicine Gastroenterology
DX: K76.0 Fatty (change of) liver, not elsewhere classified (principal); K74.60 Unspecified cirrhosis of liver; K83.8 Other specified diseases of biliary tract
CPT/HCPCS: 76705

== ENCOUNTER → 2024-02-04 | Outpatient (CLI) | payer OTHER ==
--- NOTE | 2024-03-02 15:33 | US ---
Alexandra Ortegan ID: [id number] : 1970 EXAMINATION TYPE: US abdomen limited DATE OF EXAM: 02/04/2024 Comparison: 08/03/2023 and MRCP 10/06/2022 Clinical History: 53-year-old female with liver cirrhosis, follow-up Findings: Only a small portion of the pancreatic body is seen. Remainder is obscured by bowel gas shadowing. Hypoechoic liver parenchyma may be on a technical basis. No focal liver lesion is seen. On the present exam, bile duct caliber at 1.5 cm. This is in comparison to 1.9 cm measured on 08/03/19 and 1.6 cm on 10/06/2022 MRCP. Right kidney measures 10.3 cm without hydronephrosis. No abnormal gallbladder distention, wall thickening, pericholecystic fluid, or shadowing calculi. Impression: 1. Hypoechoic liver parenchyma may in part be technical but can also be seen with hepatitis. No focal liver lesion is identified. 2. Bile duct caliber measured at 1.5 cm which is either stable or improved from prior measurements as above. 3. No gallstones are seen.
== END | disposition home or self-care (01) ==
LOC: RADUSWWP 19:53
PROVIDERS: ATTEND Internal Medicine Gastroenterology
DX: K74.60 Unspecified cirrhosis of liver (principal)
CPT/HCPCS: 76705

== ENCOUNTER → 2024-12-20 | Outpatient (CLI) | payer OTHER ==
--- NOTE | 2024-12-21 08:29 | CTL ---
EXAMINATION TYPE: CT Low Dose Lung DATE OF EXAM ORDERED: 12/20/2024 COMPARISON: None CLINICAL INDICATION: Female, 54 years old with history of Z12.2 LUNG CA SCR F17.210 CURRENT; [facility], HIS TORY OF SMOKING, Lung cancer screening, History of Smoking/tobacco use. TECHNIQUE: Low dose computed tomography scan was performed through the chest at 1 mm thick sections a nd reconstructed images in multiple planes at 1 mm and [address] DLP: 144.[address] CTDI: 3.5 mGy Automated exposure control for dose reduction was used. CT DIAGNOSTIC QUALITY: Satisfactory FINDINGS: Nodules: No clinically significant pulmonary nodules. LUNGS: COPD: Severity: Mild paraseptal emphysematous changes. Fibrosis: Severity: None Lymph nodes: None Other findings: Linear scarring within the left lung base. Additional smaller focus along the right m ajor fissure. RIGHT PLEURAL SPACE: Effusion: None Calcification: None Thickening: None Pneumothorax: None LEFT PLEURAL SPACE: Effusion: None Calcification: None Thickening: None Pneumothorax: None HEART: Heart Size: Normal Coronary Calcification: Small Pericardial Effusion: None OTHER FINDINGS: Upper abdomen: None Bony thorax: Prominent Schmorl's node involving the L3 vertebral body superior endplate. Supraclavicular region: None Other: Few dystrophic calcifications within both breasts. IMPRESSION: 1. No clinically significant pulmonary nodules. 2. Mild emphysematous changes. CT LUNG RAD AND CT CHEST RECOMMENDATION: Lung-Rad 1 Negative: Continue annual screening with LDCT in 12 months. S Modifier (other clinically significant findings): None [facility], , 12/21/2024 8:27 AM
== END | disposition home or self-care (01) ==
LOC: RADCTMAIN 15:53
DX: Z12.2 Encounter for screening for malignant neoplasm of respiratory organs (principal); J43.9 Emphysema, unspecified; F17.210 Nicotine dependence, cigarettes, uncomplicated; R06.2 Wheezing
CPT/HCPCS: 71271; 94060; 94726; 94729